=== PATIENT | male | born 1950 | race African-American/Black ===

== ENCOUNTER 2019-09-30 11:48 | Inpatient (IN) ==
[2019-09-30] MEDS ORDERED: SODIUM CHLORIDE 0.9% 500 ML IV STA (12:08)
[2019-09-30 12:31] LABS: Basophils # 0.1 10*3/uL (0.0-0.2); Basophils % 0.7 % (0.0-0.8); Hematocrit 42.7 VOL% (42.0-52.0); Hemoglobin 14.4 GM/DL (14.0-18.0); Immature Granulocytes % 0.5 %; Immature Granulocytes Absolute 0.05 #; Lymphocytes # 0.2 10*3/uL (1.4-4.0); Lymphocytes % 1.9 % (21.2-54.2); Mean Corpuscular HGB Conc 33.7 GM/DL (32-36); Mean Corpuscular Volume 87.9 FL (87-102); Mean Platelet Volume 9.8 FL (9.6-12.0); Monocytes % 2.1 % (1.7-12.7); Neutrophils % 94.8 % (38.7-73.9); Platelet Count 248 T/CUMM (130-400); Red Blood Count 4.86 MC/CUMM (3.8-5.5); Red Cell Distribution Width 14.4 % (9.3-17.3); White Blood Count 10.3 T/CUMM (4-12)
[2019-09-30 13:05] LABS: Albumin 2.5 G/DL (3.4-5.0); Band Neutrophils 30 % (0-10); Bilirubin,Total 0.4 MG/DL (0.2-1.0); Calcium 10.5 MG/DL (8.5-10.1); Lymphocytes 4 % (20-55); Nucleated Red Blood Cells 2 (0-5); Osmolality,Calculated 275.7 MOS/KG (273-304); Platelet Estimate Normal; Segmented Neutrophils 62 % (50-85); Total Cells Counted 100; Total Protein 7.4 G/DL (6.4-8.3)
[2019-09-30 13:06] LABS: Anisocytosis 1+; Macrocytosis 1+
[2019-09-30 13:08] LABS: Apearance,Urine Slightly Hazy (Clear); Bilirubin,Urine Negative (Negative); Blood, Urine Small mg/dL (Negative); Glucose,Urine (UA) Negative (Negative); Ketones,Urine Negative (Negative); Mucus,Urine Occasional /LPF (Occasional); Nitrite,Urine Negative (Negative); Protein,Urine 30 MG/DL; RBC,Urine 1 /HPF (0-4); Squamous Epithelial Cell,Urine Occasional /HPF (0-10); Urine Color Yellow (Yellow); Urine Specific Gravity 1.021 (1.001-1.035); Urine Urobilinogen < 2.0 EU/DL (0.2-1.0); WBC,Urine 4 /HPF (0-6)
[2019-09-30] MEDS ORDERED: hydrALAZINE 20 MG/1 ML VIAL IV PRN (16:03)
[2019-09-30] MEDS ORDERED: ACETAMINOPHEN 325 MG TABLET PO PRN (16:03)
[2019-09-30] MEDS ORDERED: ONDANSETRON 4 MG/2 ML VIAL IV PRN (16:03)
[2019-09-30 16:27] LABS: Ferritin 418.2 ng/ml (26-388)
[2019-09-30 16:35] LABS: Thyroid Stimulating Hormone 4.04 uIU/ml (0.358-3.74)
[2019-09-30] MEDS ORDERED: NAPROXEN 500 MG TABLET PO PRN (16:40)
[2019-09-30] MEDS ORDERED: MAGNESIUM SULF RIDER 4 GM in PREMIX 1 EACH IV PRN (16:47)
[2019-09-30] MEDS ORDERED: MAGNESIUM SULF RIDER 2 GM in PREMIX 1 EACH IV PRN (16:47)
[2019-09-30] MEDS: SODIUM CHLORIDE 0.9% 1,000 ML IV SCH (17:19)
[2019-09-30] MEDS: APIXABAN 5 MG TABLET PO SCH (21:00)
[2019-09-30] MEDS ORDERED: lisinopriL 20 MG TABLET PO SCH (21:00)
[2019-09-30] MEDS: DOCUSATE SODIUM 100 MG CAPSULE PO SCH (21:00)
[2019-09-30] MEDS: carvediloL 25 MG TABLET PO SCH (21:00)
[2019-09-30] MEDS: TIMOLOL 0.25% OPH SOLN 5 ML BOTTLE BOTH EYES SCH (21:00)
[2019-09-30] MEDS ORDERED: SPIRONOLACTONE 50 MG TABLET PO SCH (21:00)
[2019-09-30] MEDS ORDERED: ZALEPLON 5 MG CAPSULE PO PRN (22:50)
[2019-10-01 04:20] LABS: Basophils % 0.6 % (0.0-0.8); Hematocrit 33.4 VOL% (42.0-52.0); Hemoglobin 10.7 GM/DL (14.0-18.0); Immature Granulocytes % 0.6 %; Immature Granulocytes Absolute 0.04 #; Lymphocytes # 0.3 10*3/uL (1.4-4.0); Lymphocytes % 3.5 % (21.2-54.2); Mean Corpuscular Volume 91.8 FL (87-102); Mean Platelet Volume 10.1 FL (9.6-12.0); Monocytes % 3.7 % (1.7-12.7); NRBC # 0.18 10*3/uL; Neutrophils % 91.6 % (38.7-73.9); Platelet Count 219 T/CUMM (130-400); Red Blood Count 3.64 MC/CUMM (3.8-5.5); Red Cell Distribution Width 14.6 % (9.3-17.3); White Blood Count 7.1 T/CUMM (4-12)
[2019-10-01 04:40] LABS: Calcium 9.9 MG/DL (8.5-10.1); Osmolality,Calculated 279.5 MOS/KG (273-304)
[2019-10-01 04:45] LABS: Band Neutrophils 10 % (0-10); Lymphocytes 6 % (20-55); Metamyelocytes 2 %; Myelocytes 2 %; Nucleated Red Blood Cells 1 (0-5); Segmented Neutrophils 76 % (50-85); Total Cells Counted 100
[2019-10-01 04:46] LABS: Acanthocytes Few; Hypochromasia Slight; Macrocytosis 1+; Target Cells Slight
[2019-10-01 04:47] LABS: Platelet Estimate Normal
[2019-10-01] MEDS: SODIUM CHLORIDE 0.9% 1,000 ML IV SCH (05:28)
[2019-10-01 07:33] VITALS: BP 97/57
[2019-10-01] MEDS ORDERED: MORPHINE 4 MG/1 ML VIAL IV PRN (08:18)
[2019-10-01] MEDS: DOCUSATE SODIUM 100 MG CAPSULE PO SCH (08:56)
[2019-10-01] MEDS: carvediloL 25 MG TABLET PO SCH (08:56)
[2019-10-01] MEDS: TIMOLOL 0.25% OPH SOLN 5 ML BOTTLE BOTH EYES SCH (08:57)
[2019-10-01] MEDS: APIXABAN 5 MG TABLET PO SCH (08:57)
[2019-10-01] MEDS ORDERED: TAMSULOSIN 0.4 MG CAPSULE PO SCH (09:00)
[2019-10-01] MEDS ORDERED: VANCOMYCIN INJ 1,000 MG in SODIUM CHLORIDE 0.9% 250 ML IV SCH (09:00)
[2019-10-01] MEDS ORDERED: LEVOTHYROXINE 112 MCG TABLET PO SCH ×2 (09:00)
[2019-10-01] MEDS ORDERED: amLODIPine 10 MG TABLET PO SCH (09:00)
[2019-10-01] MEDS ORDERED: PIPERACILLIN/TAZOBACTAM 3,375 MG in SODIUM CHLORIDE 0.9% 100 ML IV SCH (10:00)
== END 2019-10-01 15:03 | disposition expired | DRG 194 ==
LOC: EDBD → EDUNIT# → N.ED 11:48 → N.EDINP 15:47 → N.2E 16:25 → N.ICU 10-01 11:23 → N.2E 10-01 11:55
PROVIDERS: ADMIT Internal Medicine; ATTEND Internal Medicine